=== PATIENT | female | born 1975 | race African-American/Black ===

== ENCOUNTER 2016-09-01 04:00 | Inpatient (IN) | payer OTHER ==
--- NOTE | ~2016-09-01 | PN ---
Unit #: [id number] #: [id number] Patient: LUDY REYES [id number] [facility] [address] [place] [address] [id number] MR#: [id number] NAME: LUDY REYES ROOM: P258 Age: 41 Sex: F Admission Date: 09/01/2016 : 1975 Attending Physician: Stephan Harley M.D. Admitting Physician: Stephan Harley M.D. Primary Care Physician: Primary Care Physician Ella GARCIA PROGRESS NOTES DATE 09/03/2016 DISCUSSION The patient remains dysphoric and continues to complain of poor sleep. She did tolerate her first dose of Cymbalta without complaint. I will discontinue trazodone which the patient has been taking and instead begin a trial of doxepin on a p.r.n. basis for sleep. Dictated by... Stephan Harley M.D. CB/luis m TD: 09/03/2016 15:06 JOB #: [id number] [facility] PROGRESS NOTES Page 1 of 1 X Stephan Harley MD PROGRESS NOTE
--- NOTE | ~2016-09-01 | DS ---
Unit #: [id number] #: [id number] Patient: LUDY REYES [id number] [facility] [address] [place] [address] [id number] MR#: [id number] NAME: LUDY REYES. ROOM: P258 Age: 41 Sex: F Admission Date: 09/01/2016 : 1975 Discharge Date: 09/05/2016 Attending Physician: Stephan Harley M.D. Primary Care Physician: Primary Care Physician No DISCHARGE SUMMARY REASON FOR ADMISSION The patient is a 41-year-old female, admitted with recurrent suicidal ideation. HOSPITAL COURSE The patient was admitted to the [address] [place] [address] unit and placed on suicide precautions. She was continued on prescribed Minipress with dosage increased 2 mg at h.s., Zoloft which she had been ineffectual in addressing the patient's depressive symptoms was discontinued and she was begun on Cymbalta 30 mg daily which she tolerated without complaint. The patient participated actively within the therapeutic milieu and showed slow, but steady improvement. By 09/05/2016, she denied suicidal ideation and was agree with plan for followup through the auspices of [facility] mental health resources. Discharge was ordered. FINAL DIAGNOSES Major depressive disorder, recurrent, moderate; cocaine use disorder, in remission; diabetes mellitus; hypertension; obesity; and environmental allergies. DISPOSITION ON DISCHARGE The patient is discharged on the following medications: Minipress 2 mg nightly for nightmares, Cymbalta 60 mg daily for depression, Sinequan 50 mg at h.s. p.r.n. insomnia, Claritin 10 mg daily for environmental allergies, Zestril 10 mg daily for hypertension, Levemir 15 units b.i.d. for diabetic management, Glucophage 1000 mg b.i.d. before meals for diabetic management, and Motrin 800 mg q.8 hours p.r.n. pain. DISCHARGE INSTRUCTIONS No dietary or physical restrictions were placed upon the patient at the time of discharge. FOLLOWUP She will follow up through the [facility]uspic of [facility] mental health resources. PROGNOSIS Her prognosis is considered fair. Dictated by... Stephan Harley M.D. Unit #: [id number] #: [id number] Patient: LUDY REYES CB/modl TD: 09/07/2016 14:16 JOB #: [id number] DISCHARGE SUMMARY Page 1 of 1 X Stephan Harley MD X DISCHARGE SUMMARY
--- NOTE | ~2016-09-01 | PA ---
Unit #: [id number] #: [id number] Patient: LUDY REYES [id number] [facility] [address] [place] [address] [id number] MR#: [id number] NAME: LUDY REYES. ROOM: P258 Age: 41 Sex: F Admission Date: 09/01/2016 : 1975 Date of Assessment: 09/02/2016 Attending Physician: Stephan Harley M.D. Admitting Physician: Stephan Harley M.D. Primary Care Physician: Primary Care Physician No PSYCHIATRIC ASSESSMENT IDENTIFYING INFORMATION The patient is a 41-year-old female, admitted with decrease in depression and suicidal ideation. INFORMANT(S) Patient, reliability is good. CHIEF COMPLAINT None given. HISTORY OF PRESENT ILLNESS The patient is a 41-year-old female, admitted after she presented to [facility] voicing positive suicidal ideation. The patient has been in a program at [facility] for the past nine months following a history of crack cocaine abuse. She states that she has maintained sobriety during that period of time and her drug screen was, in fact, negative. The patient reports that she has, for the past three months, been treated for depression through the auspices of [facility], and has been prescribed Zoloft with dosage titration to 100 mg. She states that she feels "no difference" with this medication and complains of depressed mood, suicidal ideation, hopelessness, poor sleep, racing thoughts and nightmares. The patient reports one previous suicide attempt with this having taken place at the age of [age] but she has never been psychiatrically hospitalized and the patient remains dysphoric and flat, and continues to endorse hopelessness and suicidal ideation. She states that she does not feel as though she is doing well in the program at [facility] alleging that there are "bad things going on there." PAST PSYCHIATRIC HISTORY As above. PAST MEDICAL HISTORY Significant for history of diabetes, obesity, environmental allergies, and hypertension. MEDICATIONS 1. Sertraline 2. Trazodone 3. Minipress 4. Metformin 5. Ibuprofen 6. Lantus Unit #: [id number] #: [id number] Patient: LUDY REYES 7. Loratadine 8. Lisinopril ALLERGIES None. FAMILY HISTORY Noncontributory. SOCIAL HISTORY The patient is currently residing at [facility] and a residential chemical dependence treatment related to a history of crack cocaine abuse. She is a smoker. She is not employed. MENTAL STATUS EXAM At this time, reveals an obese female, appearing her stated age, she is in no apparent physical distress at the time of the examination. She is awake, alert, and oriented in all spheres. Her mood is dysphoric. Her affect blunted. Speech is generally relevant and coherent. There are no gross deficits to memory or cognition noted. Intelligence is judged to be in the average range based on fund of knowledge. The patient is cooperative throughout the interview. She is currently endorsing positive suicidal ideation. She denies homicidal ideation. She denies any psychotic symptoms. Her judgment and insight appear to be reasonably intact. ASSETS Motivation for change. LIABILITIES Lack of resources. DIAGNOSTIC IMPRESSION Lorraine I: Major depressive disorder, recurrent, moderate. Cocaine use disorder, in remission. Lorraine II: Lorraine III: Diabetes mellitus. Hypertension. Obesity. Environmental allergies. TREATMENT PLAN The patient remains hospitalized for safety and stabilization. She reports no response, whatsoever, to Zoloft following a three month duration of treatment and this medication will therefore be discontinued and the patient begun on a trial of Cymbalta 30 mg daily. We will increase Minipress 2 mg at h.s. given the patient's complaints of ongoing nightmares and I will ask for an internal medicine consultation regarding the patient's diabetic management. ESTIMATED LENGTH OF STAY IN THE HOSPITAL [id number] days with the follow up to take place through the auspices of community mental health resources. Dictated by... Unit #: [id number] #: [id number] Patient: LUDY REYES M.D. CB/juanita TD: 09/02/2016 12:12 JOB #: [id number] PSYCHIATRIC ASSESSMENT Page 1 of 1 X Stephan Harley MD PSYCHIATRIC ASSESSMENT
--- NOTE | ~2016-09-01 | PN ---
Unit #: [id number] #: [id number] Patient: LUDY REYES [id number] [facility] [address] [place] [address] [id number] MR#: [id number] NAME: LUDY REYES ROOM: P258 Age: 41 Sex: F Admission Date: 09/01/2016 : 1975 Attending Physician: Stephan Harley M.D. Admitting Physician: Stephan Harley M.D. Primary Care Physician: Primary Care Physician No [facility] PROGRESS NOTES DATE 09/04/2016 DISCUSSION The patient is in somewhat brighter spirits today, and is reporting reduced suicidal ideation should she sustain progress discharge could take place as early as tomorrow. She plans to return to "[facility]." Dictated by... Stephan Harley M.D. CB/juanita TD: 09/04/2016 13:02 JOB #: [id number] [facility] PROGRESS NOTES Page 1 of 1 X Stephan Harley MD X PROGRESS NOTE
--- NOTE | ~2016-09-01 | HP ---
Unit #: [id number] #: [id number] Patient: CHRISTINA REYES [id number] [place] [address] [id number] I MR#: [id number] NAME: CHRISTINA REYES. ROOM: P258 Age: 41 Sex: F Admission Date: 09/01/2016 : 1975 Attending Physician: Stephan Harley M.D. Admitting Physician: Stephan Harley M.D. Primary Care Physician: Primary Care Physician No HISTORY AND PHYSICAL HISTORY OF PRESENT ILLNESS Christina is a 41 year old, admitted to [address] [place] [address] with depression and verbalizing wanting to hurt herself. PAST MEDICAL HISTORY 1. Obesity. 2. Diabetes mellitus. 3. High blood pressure. PAST SURGICAL HISTORY Inguinal hernia repair as a baby. ALLERGIES Benadryl. SOCIAL HISTORY She smokes occasionally, drinks at least four beers on a daily basis, admits to using marijuana daily, and has a history of cocaine use but nothing in many, many years. FAMILY HISTORY Medically noncontributory. REVIEW OF SYSTEMS CONSTITUTIONAL: No fever or chills. HEENT: Denies any sore throat, ear pain or runny nose. CARDIOVASCULAR: Denies chest pain, irregular heart rhythm or palpitations. CHEST: Denies shortness of breath or cough. No hemoptysis. GASTROINTESTINAL: Denies nausea, vomiting, diarrhea or chronic constipation. ENDOCRINE: Denies history of increased thirst or urination. No recent significant weight loss or gain. GENITOURINARY: Denies dysuria, frequency, or hematuria. SKIN: Denies any rashes. HEMATOLOGIC: Denies history of increased bleeding or bruising. MUSCULOSKELETAL: Denies any hot, swollen joints. No generalized muscle pain. NEUROLOGIC: Denies problems with vision or speech. No frequent, severe headaches. No numbness, tingling or weakness in any extremities. Denies loss of bladder or bowel control. CURRENT MEDICATIONS 1. Claritin 10 mg daily Unit #: [id number] #: [id number] Patient: CHRISTINA REYES 2. Minipress 2 mg q.h.s. 3. Cymbalta 30 mg daily 4. Levemir 50 units b.i.d. 5. Trazodone 150 mg q.h.s. 6. Milk of magnesia p.r.n. 7. Maalox p.r.n. 8. Tylenol p.r.n. 9. Ibuprofen 800 mg q.8h p.r.n. 10. Glucophage 1000 mg b.i.d. 11. Zestril 10 mg daily PHYSICAL EXAMINATION GENERAL: Alert, obese, no apparent distress. VITAL SIGNS: Blood pressure 120/80, heart rate 80, respirations 16, and temperature 98.6. WEIGHT: 215 pounds. HEIGHT: 5 feet 6 inches. SKIN: Warm and dry without rash or lesion. HEENT: Normocephalic. TMs not viewed. Oral and nasal passages clear. Conjunctivae clear. PERRLA. EOMs intact. NECK: Supple without lymphadenopathy or thyromegaly. HEART: Regular rate and rhythm without murmur. LUNGS: Clear. ABDOMEN: Soft, nontender. : Not done. EXTREMITIES: No evidence of cyanosis, clubbing or edema. Moves all without focal deficit. NEUROLOGICAL: Grossly within normal limits. Cranial Nerves: II: Visual ward are intact. III, IV AND : Extraocular movements are intact. Pupils are equal, round and reactive to light. V: Facial sensation is grossly normal. VII: Facial movements and expression are normal. VIII: Auditory acuity grossly intact. IX, X: Uvula is midline. Phonation is normal. XI: Patient shrugs shoulders and turns head normally. XII: Tongue protrudes in the midline. Sensory and Motor Function: Sensory and motor sensation is grossly normal. Motor: moves all extremities well. Coordination: Gait is normal. Deep Tendon Reflexes: Intact. IMPRESSION Psychiatric admission. RECOMMENDATIONS Psychiatric, per psychiatrist. MEDICAL I see no contraindications to participating in facility's activities. MEDICAL PROGNOSIS Good. MEDICAL CONDITION Stable. Dictated by... Shawna Sanon P.A.-C. for Yaneli Melendez M.D. Unit #: [id number] #: [id number] Patient: CHRISTINA REYES EDMUNDO/juanita TD: 09/02/2016 14:34 JOB #: [id number] HISTORY AND PHYSICAL Page 1 of 1 X Shawna Sanon X HISTORY AND PHYSICAL
[2016-09-02 13:30] LABS: BASOPHIL# 0.1 X10e3 (0-0.3); EOSINOPHIL# 0.1 X10e3 (0-0.7); HEMATOCRIT 39.3 % (35.0-45.0); HEMOGLOBIN 12.4 gm/dL (12.0-16.0); LYMPHOCYTE# 2.7 X10e3 (1.0-3.5); LYMPHOCYTE% 47.8 % (17.0-45.0); MEAN CELL VOLUME 85.2 FL (83-96); MEAN CORPUSCULAR HEMOGLOBIN 26.9 PG (28-34); MEAN CORPUSCULAR HGB CONC 31.5 g/dL (30-36); MEAN PLATELET VOLUME 9.1 FL (6.5-11.5); MONOCYTE# 0.4 X10e3 (0-1.0); MONOCYTE% 7.6 % (3.0-12.0); NEUTROPHIL# 2.4 X10e3 (1.5-7.1); NEUTROPHIL% 41.6 % (40-75); PLATELET COUNT 190 X10e3 (140-420); RED BLOOD COUNT 4.61 X10e (3.90-5.30); RED CELL DISTRIBUTION WIDTH 13.4 % (11.0-15.5); WHITE BLOOD COUNT 5.7 X10e3 (4.0-10.5)
[2016-09-02 13:54] LABS: DIFF IND NO
[2016-09-02 14:20] LABS: ALBUMIN SERUM 3.3 g/dL (3.5-5.0); BILIRUBIN,TOTAL 0.5 mg/dL (0.2-2.0); CALCIUM SERUM 8.9 mg/dL (8.4-10.2); CREATININE SERUM 0.6 mg/dL (0.6-1.4); GLOM FILT RATE Estimated 130.3 mL/min (>60); POTASSIUM 4.6 mmol/L (3.5-5.1); PROTEIN TOTAL SERUM 6.8 g/dL (6.0-8.3)
== END 2016-09-05 15:40 | disposition home or self-care (01) | DRG 885 ==
LOC: P2L 14:54
PROVIDERS: Specialist
DX: F33.1 Major depressive disorder, recurrent, moderate (principal); E11.9 Type 2 diabetes mellitus without complications; I10 Essential (primary) hypertension; F14.21 Cocaine dependence, in remission; E66.9 Obesity, unspecified; F17.210 Nicotine dependence, cigarettes, uncomplicated
CPT/HCPCS: 80053; 82947; 84703; 85025